=== PATIENT | female | born 1985 | race Caucasian/White ===

== ENCOUNTER 2019-09-08 13:57 | Outpatient (CLI) | payer OTHER ==
--- NOTE | 2019-09-09 02:41 | Ultrasound Report ---
Reason: POSITIVE TEST Procedure Date: 09/08/2019 Accession Number: [id number] / [id number] Procedure: US - OB First Trimester CPT Code: Final Report FULL RESULT: EXAM: FIRST TRIMESTER OBSTETRIC ULTRASOUND (Less than 11 weeks) EXAM DATE: 09/08/2019 02:50 PM. CLINICAL HISTORY: POSITIVE TEST. LMP: Unknown. COMPARISONS: None. TECHNIQUE: Transabdominal and transvaginal ultrasound examination with static image documentation. CLINICAL DATES: EGA 7 weeks 3 days with MANINDER 05/03/2020 based on LMP 07/18/2019. ASSESSMENT: Gestational Sac: Single intrauterine. Normal shape. Mean gestational sac diameter: 24 mm = 7 weeks 3 days. Embryo: CRL (crown-rump length) 9 mm = 7 weeks 0 days. Cardiac activity: 138 beats per minute. Yolk sac: 5 mm. Amniotic fluid: Not accurately assessed at this gestational age. Early placenta: Not visible at this gestational age. Other: No perigestational fluid collection demonstrated. MATERNAL STRUCTURES: Uterus: Retroflexed. Unremarkable. Cervix: Closed. Right Ovary/Adnexa: The ovary measures 2.5 x 1.3 x 3.8 cm, volume 6.2 cc. Unremarkable. Left Ovary/Adnexa: The ovary measures 2.8 x 2.6 x 2.9 cm, volume 10.9 cc. Corpus luteum cyst measuring 2.2 x 2.3 x 2.0 cm.. Free Fluid: None. Other: None. IMPRESSION: 1. Single viable intrauterine at EGA 7 weeks 0 days with MANINDER 04/26/2020 based on [place]-Rump Length, which is concordant with clinical dates. 2. Assigned dating is MANINDER 04/26/2020 based on current ultrasound study.. RADIA
== END 2019-09-08 13:58 | disposition home or self-care (01) ==
LOC: DI 13:57
PROVIDERS: ATTEND Advanced Practice Midwife
DX: Z32.01 Encounter for pregnancy test, result positive (principal)
CPT/HCPCS: 76801; 76817

== ENCOUNTER 2019-09-26 07:00 | Outpatient (CLI) | payer OTHER ==
[2019-09-26 16:09] LABS: MUDS CUTOFF CONCENTRATIONS CUTOFF CONC BELOW:
[2019-09-26 16:53] LABS: BILIRUBIN,URINE NEGATIVE (NEGATIVE); GLUCOSE, URINE (UA) NEGATIVE (NEGATIVE); KETONES,URINE (UA) TRACE mg/dL (NEGATIVE); LEUKOCYTE ESTERASE, URINE NEGATIVE (NEGATIVE); NITRITE,URINE NEGATIVE (NEGATIVE); OCCULT BLOOD,URINE NEGATIVE (NEGATIVE); PH,URINE 6.5 PH (5.0-7.5); PROTEIN,URINE NEGATIVE (NEGATIVE); UROBILINOGEN,URINE 0.2 (NORMAL) E.U./dL (NORMAL)
[2019-09-26 17:05] LABS: BACTERIA,URINE None Seen /HPF (None Seen); CLARITY,URINE V (CLEAR); CRYSTALS,URINE 0-2 Calcium Oxalate /LPF; RBC,URINE None Seen /HPF (0-5); SQUAMOUS EPITHELIAL CELL,UR RARE Squamous (<= Few)
[2019-09-26 17:06] LABS: AMPHETAMINE SCREEN,URINE NEGATIVE (NEGATIVE); BENZODIAZEPINES SCREEN, URINE NEGATIVE (NEGATIVE); COCAINE SCREEN URINE NEGATIVE (NEGATIVE); METHADONE SCREEN, URINE NEGATIVE (NEGATIVE); METHAMPHETAMINES SCREEN, URINE NEGATIVE (NEGATIVE); OPIATE SCREEN, URINE NEGATIVE (NEGATIVE); OXYCODONE SCREEN, URINE NEGATIVE (NEGATIVE); PROPOXYPHENE SCREEN, URINE NEGATIVE (NEGATIVE); TRICYCLIC ANTIDEPRESSANT,URINE NEGATIVE (NEGATIVE)
[2019-09-26 21:18] LABS: TRICHOMONAS VAGINALIS DNA NEGATIVE (NEGATIVE)
== END 2019-09-26 23:59 | disposition home or self-care (01) ==
LOC: LAB.R 07:00
PROVIDERS: ATTEND Advanced Practice Midwife
DX: Z34.90 Encounter for supervision of normal pregnancy, unspecified, unspecified trimester (principal); Z36.89 Encounter for other specified antenatal screening
CPT/HCPCS: 80306; 81001; 87086; 87491; 87591; 87661

== ENCOUNTER 2019-09-30 16:44 | Outpatient (CLI) | payer OTHER ==
[2019-09-30 17:14] LABS: BASOPHILS # (AUTO) 0.1 10^3/uL (0.0-0.1); BASOPHILS % (AUTO) 0.9 %; EOSINOPHILS # (AUTO) 0.1 10^3/uL (0.0-0.7); EOSINOPHILS % (AUTO) 0.4 %; LYMPHOCYTES # (AUTO) 2.4 10^3/uL (1.5-3.5); LYMPHOCYTES % (AUTO) 18.9 %; MEAN CORPUSCULAR HEMOGLOBIN 31.3 pg (27.0-31.0); MEAN CORPUSCULAR HGB CONC 34.9 g/dL (32.0-36.0); MEAN CORPUSCULAR VOLUME 89.9 fL (81.0-99.0); MEAN PLATELET VOLUME 9.3 fL (7.9-10.8); MONOCYTES # (AUTO) 0.6 10^3/uL (0.0-1.0); MONOCYTES % (AUTO) 4.4 %; NEUTROPHILS # (AUTO) 9.4 10^3/uL (1.5-6.6); NEUTROPHILS % (AUTO) 74.8 %; PLT - PLATELET COUNT 365 10^3/uL (130-450); RED BLOOD COUNT 4.15 10^6/uL (4.20-5.40); RED CELL DISTRIBUTION WIDTH 12.7 % (12.0-15.0); WHITE BLOOD COUNT 12.6 x10^3/uL (4.8-10.8)
[2019-10-01 11:19] LABS: HIV AG/AB 4TH GEN NON-REACTIVE (NON-REACTIVE)
[2019-10-01 12:50] LABS: HEPATITIS B SURFACE ANTIGEN NON-REACTIVE (NON-REACTIVE); HEPATITIS C ANTIBODY NON-REACTIVE (NON-REACTIVE)
== END 2019-09-30 16:45 | disposition home or self-care (01) ==
LOC: LAB 16:44
PROVIDERS: ATTEND Advanced Practice Midwife
DX: Z34.90 Encounter for supervision of normal pregnancy, unspecified, unspecified trimester (principal); Z36.89 Encounter for other specified antenatal screening
CPT/HCPCS: 36415; 81599; 85025; 86592; 86762; 86803; 86850; 86900; 86901; 87340; 87389

== ENCOUNTER 2019-10-14 15:44 | Outpatient (CLI) | payer OTHER | END 2019-10-14 15:45 | disposition home or self-care (01) | LOC: LAB 15:44 | PROVIDERS: ATTEND Advanced Practice Midwife | DX: Z01.89 Encounter for other specified special examinations (principal) | CPT/HCPCS: 36415 ==

== ENCOUNTER 2019-12-03 08:40 | Outpatient (CLI) | payer OTHER ==
--- NOTE | 2019-12-03 15:00 | Ultrasound Report ---
PROCEDURE: OB Detailed Eval INDICATIONS: SUPERVISION OF OUTSIDE/PRIOR DATING DATA: Last menstrual period (LMP): 07/18/2019. LMP-based estimated date of delivery (MANINDER): 04/23/2020. First dating scan (date and location): 09/08/2019. Estimated date of delivery (MANINDER) from first dating scan: 04/26/2020. TECHNIQUE: Real-time scanning was performed of the fetus, with image documentation and biometric measurements. COMPARISON: 09/08/2019 FINDINGS: General: A single live intrauterine gestation is present. Presentation: Variable Placenta: Placental position is anterior/low lying, seen 5 mm from the internal cervical os. Amniotic fluid index: 17.6 cm, 81st percentile for gestational age. heart rate: 147 beats per minute. Maternal cervical canal: 4.4 cm long; normal length is 2.5 cm or more. biometrics: Biparietal diameter: 4.9 cm equals 20 weeks 6 days Head circumference: 17.4 cm equals 20 weeks 0 days Abdominal circumference: 14.5 cm equals 19 weeks 6 days Femur length: 2.9 cm equals 19 weeks 0 days Estimated gestational age from initial scan: 19 weeks 2 days Composite gestational age from present scan: 19 weeks 6 days Estimated weight and percentile: 297 g, 59th percentile Measurement variability in biometric dating: +/- 10 days from 12-20 weeks gestation, +/- 2 weeks from 20-30 weeks gestation, +/- 3 weeks at 30 weeks gestation or later. Anatomic survey: Neuro: Ventricles are normal at less than 10 mm. Cisterna magna is normal at 3-11 mm. Cerebellum i s normal in size and morphology. Nuchal skin fold: Normal at less than 6 mm between 14 and 20 weeks gestational age. Face: Nose and lips, facial profile are normal. Spine: No evidence for spina bifida. Heart: 4-chambered heart is present, with normal ventricular outflow tracts. Diaphragm: Diaphragm is intact. Stomach: Left-sided stomach is present. Kidneys: No hydronephrosis. Normal is less than 5 mm in 2nd trimester, less than 7 mm in 3rd trimester. Cord: 3 vessel cord has orthotopic insertion. Bladder: Normal in size. Extremities: All 4 extremities are visualized. IMPRESSION: Low-lying anteriorly located placenta, which is seen 5 mm from the internal cervical os. Single live intrauterine , without an anatomic abnormality identified. Normal interval growth compared to the prior ultrasound examination. No anatomic abnormalities are identified. Reviewed by: Jaret Valdovinos MD on 12/03/2019 1:58 PM GEOVANNA Approved by: Jaret Valdovinos MD on 12/03/2019 1:58 PM GEOVANNA Station ID: [id number]
== END 2019-12-03 08:41 | disposition home or self-care (01) ==
LOC: DI 08:40
PROVIDERS: ATTEND Advanced Practice Midwife
DX: O44.42 Low lying placenta NOS or without hemorrhage, second trimester (principal); Z3A.19 19 weeks gestation of pregnancy
CPT/HCPCS: 76811

== ENCOUNTER 2020-01-27 11:05 | Outpatient (CLI) | payer OTHER ==
[2020-01-27 12:34] LABS: HGB - HEMOGLOBIN 11.8 g/dL (12.0-16.0); MEAN CORPUSCULAR HEMOGLOBIN 32.4 pg (27.0-31.0); MEAN CORPUSCULAR HGB CONC 34.6 g/dL (32.0-36.0); MEAN CORPUSCULAR VOLUME 93.7 fL (81.0-99.0); MEAN PLATELET VOLUME 9.4 fL (7.9-10.8); RED BLOOD COUNT 3.64 10^6/uL (4.20-5.40); RED CELL DISTRIBUTION WIDTH 13.3 % (12.0-15.0); WHITE BLOOD COUNT 13.7 x10^3/uL (4.8-10.8)
== END 2020-01-27 11:06 | disposition home or self-care (01) ==
LOC: LAB 11:05
PROVIDERS: ATTEND Advanced Practice Midwife
DX: Z36.89 Encounter for other specified antenatal screening (principal)
CPT/HCPCS: 36415; 82950; 85027

== ENCOUNTER 2020-01-30 17:07 | Outpatient (CLI) | payer OTHER ==
--- NOTE | 2020-01-31 16:43 | Ultrasound Report ---
PROCEDURE: OB F/U or Repeat INDICATIONS: LOW LYING PLACENTA OUTSIDE/PRIOR DATING DATA: Last menstrual period (LMP): 07/18/2019. LMP-based estimated date of delivery (MANINDER): 04/23/2020. First dating scan (date and location): 09/08/2019. Estimated date of delivery (MANINDER) from first dating scan: 04/26/2020. TECHNIQUE: Real-time scanning was performed of the fetus, with image documentation and biometric measurements. COMPARISON: OB ultrasound 12/03/2019, 09/08/2019 FINDINGS: General: A single living intrauterine gestation is present. Presentation: Vertex Placenta: Placental position is anterior, without previa. Previous appearance of low-lying placenta is not visualized on current exam. Placenta is approximately 5.5 cm from the internal os. Amniotic fluid index: 17.8 cm, 74th percentile for gestational age. Largest pocket 4.9 cm. heart rate: 144 beats per minute. Maternal cervical canal: 3.3 cm long; normal length is 2.5 cm or more. biometrics: Estimated gestational age from initial scan: 27 weeks 4 days Other: Not applicable. IMPRESSION: 1. Previously noted low-lying placenta is no longer visualized. Reviewed by: Raven Obando MD on 01/31/2020 4:42 PM PDT Approved by: Raven Obando MD on 01/31/2020 4:42 PM PDT Station ID: [id number]
== END 2020-01-30 17:08 | disposition home or self-care (01) ==
LOC: DI 17:07
PROVIDERS: ATTEND Advanced Practice Midwife
DX: O44.00 Complete placenta previa NOS or without hemorrhage, unspecified trimester (principal); Z3A.27 27 weeks gestation of pregnancy
CPT/HCPCS: 76816

== ENCOUNTER → 2020-03-12 | Outpatient (CLI) | payer OTHER | LOC: LAB.R 08:00 | PROVIDERS: ATTEND Advanced Practice Midwife | DX: Z36.85 Encounter for antenatal screening for Streptococcus B (principal) | CPT/HCPCS: 87797 ==

== ENCOUNTER 2020-04-24 21:25 | Inpatient (IN) | payer OTHER ==
[2020-04-24] MEDS ORDERED: ONDANSETRON 4 MG/2 ML VIAL IVP PRN (21:53)
[2020-04-24] MEDS ORDERED: TRANEXAMIC ACID 1,000 MG in SODIUM CHLORIDE 0.9% 100ML 100 ML IV PRN (21:53)
[2020-04-24] MEDS ORDERED: OXYTOCIN/SODIUM CHLORIDE 500 ML IV PRN (21:53)
[2020-04-24] MEDS ORDERED: fentaNYL 100 MCG/2 ML VIAL IVP PRN (21:53)
[2020-04-24] MEDS ORDERED: METHYLERGONOVINE 0.2 MG/ML VIAL IM PRN (21:53)
[2020-04-24] MEDS ORDERED: LIDOCAINE-MPF 1% 30 ML VIAL ID PRN (21:53)
[2020-04-24] MEDS ORDERED: OXYTOCIN 10 UNIT/ML VIAL IM PRN (21:53)
[2020-04-24] MEDS ORDERED: miSOPROStoL 200 MCG TABLET BC PRN (21:53)
[2020-04-24] MEDS ORDERED: CARBOPROST TROMETHAMINE 250 MCG/ML AMP IM PRN (21:53)
[2020-04-24] MEDS ORDERED: SODIUM CHLORIDE FLUSH 0.9% 10 ML SYRINGE IVP PRN (21:53)
[2020-04-24] MEDS ORDERED: LACTATED RINGERS 1,000 ML IV SCH (22:00)
[2020-04-24 22:31] LABS: BASOPHILS # (AUTO) 0.1 10^3/uL (0.0-0.1); BASOPHILS % (AUTO) 0.4 %; EOSINOPHILS % (AUTO) 0.1 %; HGB - HEMOGLOBIN 13.2 g/dL (12.0-16.0); LYMPHOCYTES # (AUTO) 2.3 10^3/uL (1.5-3.5); LYMPHOCYTES % (AUTO) 12.9 %; MEAN CORPUSCULAR HEMOGLOBIN 31.1 pg (27.0-31.0); MEAN CORPUSCULAR HGB CONC 34.5 g/dL (32.0-36.0); MEAN CORPUSCULAR VOLUME 90.1 fL (81.0-99.0); MEAN PLATELET VOLUME 9.8 fL (7.9-10.8); MONOCYTES # (AUTO) 0.8 10^3/uL (0.0-1.0); MONOCYTES % (AUTO) 4.5 %; NEUTROPHILS # (AUTO) 14.8 10^3/uL (1.5-6.6); NEUTROPHILS % (AUTO) 81.1 %; PLT - PLATELET COUNT 337 10^3/uL (130-450); RED BLOOD COUNT 4.25 10^6/uL (4.20-5.40); RED CELL DISTRIBUTION WIDTH 13.2 % (12.0-15.0); WHITE BLOOD COUNT 18.2 x10^3/uL (4.8-10.8)
--- NOTE | 2020-04-24 23:23 | ANESTHESIA ---
Pre-Anesthesia VS, & Labs - Diagnosis Active labor - Procedure vaginal delivery Vital Signs: Temp Pulse Resp BP Pulse Ox 37.3 C 79 18 137/85 H 100 04/24/20 22:28 04/24/20 21:36 04/24/20 21:36 04/24/20 21:36 04/24/20 21:36 Height: 5 ft 8 in Weight (kg): 72.575 kg Body Mass Index: 24.3 BMI Classification: Healthy weight - NPO Other - Is Patient ?: Yes - Lab Results Current Lab Results: Laboratory Tests 04/24/20 22:16: Blood Type O POSITIVE, Antibody Screen NEGATIVE 04/24/20 22:16: WBC 18.2 H, RBC 4.25, Hgb 13.2, Hct 38.3, MCV 90.1, MCH 31.1 H, MCHC 34.5, RDW 13.2, Plt Count 337, MPV 9.8, Neut # (Auto) 14.8 H, Lymph # (Auto) 2.3, [place] # (Auto) 0.8, Eos # (Auto) 0.0, Baso # (Auto) 0.1, Absolute Nu cleated RBC 0.00, Nucleated RBC % 0.0 Fish Bones: 04/24/20 22:16 Home Medications and Allergies Active Medications Carboprost Tromethamine (Carboprost Tromethamine 250 Mcg/Ml Amp) 250 mcg IM Q15M PRN PRN Reason: Step 4: Hemorrhage protocol Stop: 04/29/20 21:53 Fentanyl (Fentanyl 100 Mcg/2 Ml Vial) 50 mcg IVP Q1H PRN PRN Reason: PAIN Oxytocin/Sodium Chloride (Pitocin/Sodium Chloride) 500 mls @ 999 mls/hr IV PRN PRN; Protocol PRN Reason: POST- HEMORR PREVENTION Stop: 04/29/20 21:53 Tranexamic Acid 1,000 mg/ (Sodium Chloride) 110 mls @ 660 mls/hr IV .ONCE PRN PRN Reason: EBL >1200mL and within 3hr Stop: 04/29/20 21:53 Lactated Ringer's (Lr) 1,000 mls @ 150 mls/hr IV .Q6H40M REED Last Admin: 04/24/20 23:17 Dose: 150 mls/hr Documented by: Lidocaine HCl (Lidocaine-Mpf 1% 30 Ml Vial) 30 ml ID .ONCE PRN PRN Reason: PERINEAL REPAIR Stop: 04/29/20 21:53 Methylergonovine Maleate (Methylergonovine 0.2 Mg/Ml Vial) 0.2 mg IM .ONCE PRN PRN Reason: Step 2: Hemorrhage protocol Stop: 04/29/20 21:53 Misoprostol (Misoprostol 200 Mcg Tablet) 800 mcg BC .ONCE PRN PRN Reason: Step 3: Hemorrhage protocol Stop: 04/29/20 21:53 Ondansetron HCl (Ondansetron 4 Mg/2 Ml Vial) 4 mg IVP Q4H PRN PRN Reason: Nausea / Vomiting Oxytocin (Oxytocin 10 Unit/Ml Vial) 10 unit IM .ONCE PRN PRN Reason: Step one: If no IV access Stop: 04/29/20 21:53 Sodium Chloride (Sodium Chloride Flush 0.9% 10 Ml Syringe) 10 ml IVP PRN PRN PRN Reason: NEEDED PER PROVIDER ORDERS acyclovir, pnv Allergies/Adverse Reactions: Allergies Allergy/AdvReac Type Severity Reaction Status Date / Time Penicillins Allergy Unknown Verified 04/24/20 22:36 Anes History & Medical History - Anesthetic History Family history of Anesthesia Complications: Denies Family history of Malignant Hyperthermia: Denies - Medical History Cardiovascular: reports: None Pulmonary: reports: None Gastrointestinal: reports: None Urinary: reports: None Neuro: reports: Other (herniated lumbar disc) Musculoskeletal: reports: None Endocrine/Autoimmune: reports: None Blood Disorders: reports: None Skin: reports: None Smoking Status: Former smoker Psychosocial: reports: No issues indicated History of Cancer?: No Exam General: Alert, Oriented x3, Cooperative, Moderate distress Mouth Openin Fingerbreadth Neck Mobility: Normal Mallampati classification: II Thyromental Distance: 4-6 cm Mental/Cognitive Status: Alert/Oriented X3, Normal for patient Plan Anesthesia Type: Epidural Consent for Procedure(s) Verified and Reviewed: Yes Code Status: Attempt Resuscitation ASA classification: 2-Mild systemic disease Is this case an emergency?: No
[2020-04-24] MEDS ORDERED: ROPIVACAINE 0.2% 200 MG/100 ML BAG EP ONE (23:29)
[2020-04-24] MEDS ORDERED: ePHEDrine 50 MG/ML AMP IVP PRN (23:50)
[2020-04-24] MEDS ORDERED: ROPIVACAINE 0.2% 200 MG/100 ML BAG EP PRN (23:50)
--- NOTE | 2020-04-25 01:20 | HISTORY & PHYSICAL EXAMINATION ---
HPI - History of Present Illness HPI Comment/Other: CC: labor HPI: contractions started at 16:30, got more intense with time, stayed at home until q2-3min. No VB, no LOF. Good FM. ROS: no fevers or cough PMH: possible HSV PSH: neg Allergies: PCN childhood reaction FH: no congenital abnormalities SH: no current t/e/d OB: G1 is current. S/p tdap and flu vax Rh+, RI, Normal genetic testing and US GBS + MANINDER by LMP c/w 7w US PMH/PSH - Past Medical History Cardiovascular: positive: None Respiratory: positive: None Neuro: positive: Other (herniated lumbar disc) Endocrine/Autoimmune: positive: None GI: positive: None : positive: None Musculoskeletal: positive: None Derm: positive: None Social & Family Hx - Social History Smoking Status: Former smoker Meds/Allgy - Allergies Allergies/Adverse Reactions: Allergies Allergy/AdvReac Type Severity Reaction Status Date / Time Penicillins Allergy Unknown Verified 04/24/20 22:36 Exam - Vital Signs Vital Signs: Vital Signs x48h Temp Pulse Resp BP Pulse Ox 04/24/20 22:28 99.1 F 04/24/20 21:36 99.1 F 79 18 137/85 H 100 - Physical Exam Comments/Other: O: AVSS Alert, smiling with epidural, NAD Abd soft, nt/nd EFW 6.75# Vertex by exam Currently complete, SROM for thick mec NST currently category 1. [place] 4 contractions in 10min Results - Lab Results Fish Bones: 04/24/20 22:16 Other Lab Results: Lab Results x24hrs 04/24/20 04/24/20 Range/Units 22:16 22:16 WBC 18.2 H (4.8-10.8) x10^3/uL RBC 4.25 (4.20-5.40) 10^6/uL Hgb 13.2 (12.0-16.0) g/dL Hct 38.3 (37.0-47.0) % MCV 90.1 (81.0-99.0) fL MCH 31.1 H (27.0-31.0) pg MCHC 34.5 (32.0-36.0) g/dL RDW 13.2 (12.0-15.0) % Plt Count 337 (130-450) 10^3/uL MPV 9.8 (7.9-10.8) fL Neut # (Auto) 14.8 H (1.5-6.6) 10^3/uL Lymph # (Auto) 2.3 (1.5-3.5) 10^3/uL Delta # (Auto) 0.8 (0.0-1.0) 10^3/uL Eos # (Auto) 0.0 (0.0-0.7) 10^3/uL Baso # (Auto) 0.1 (0.0-0.1) 10^3/uL Absolute Nucleated RBC 0.00 x10^3/uL Nucleated RBC % 0.0 /100WBC Blood Type O POSITIVE Antibody Screen NEGATIVE Impression/Plan - Problem List Problem List: 34yo G1 at 40w2d by LMP c/w 7w US with spontaneous labor at term ; SROM for thick meconium. --Good labor progress, continue without intervention --Good pain control with epidural --Just became complete, will start pushing -- wellbeing reassuring. Normal genetic screen and anatomy US. 6.75# EFW. Reassuring NST. --Thick mec with post-dates fetus and without distress on monitoring. Peds and RT at delivery. --GBS neg --No issues identified.
[2020-04-25] MEDS ORDERED: HYDROCORTISONE 1% CREAM 28 GM TUBE PR PRN (03:01)
[2020-04-25] MEDS ORDERED: ONDANSETRON ODT 4 MG TABLET TL PRN (03:01)
[2020-04-25] MEDS ORDERED: WITCH HAZEL/GLYCERIN 1 PAD TOP PRN (03:01)
--- NOTE | 2020-04-25 03:05 | DELIVERY NOTE ---
Delivery Note - Labor Labor: positive: Spontaneous - Delivery Method Delivery Method: positive: Spontaneous vaginal delivery - Presentation Presentation: positive: Vertex - Nuchal Cord Nuchal Cord: positive: None - Amniotic Fluid Description Amniotic Fluid Description: positive: Thick meconium - Episiotomy Type Episiotomy Type: positive: None - Laceration Laceration: positive: 2nd degree - Suture Suture Type: positive: Vicryl - [place] : positive: Placed in direct skin contact with mother, Bulb syringe, Stimulated, Warmed, [place] used sex: positive: Male : Apgars 9/9 - Cord Cord: positive: 3 vessels - Placenta Placenta: positive: Intact, Spontaneous - Estimated Blood Loss Estimated Blood Loss (in cc): 60 - Post Delivery Events Post Delivery Events: positive: No post delivery events - Delivery Comments (Free Text/Narrative) Delivery Comments (Free Text/Narrative): 34yo G1 at 40w now 3d presented in spontaneous labor. Good labor progression here, got an epidural, SROM for thick mec when she became complete. Pushed for about 1h to deliver. Uncomplicated delivery. 2nd degree lac repaired with 2-0 and 3-0 vicryl to restore normal anatomy. EBL 60cc and starting Hct was 38 and so no CBC ordered for recheck. No specific concerns anticipated. Plan for routine care.
[2020-04-25] MEDS: ACETAMINOPHEN 500 MG TABLET PO PRN ×3 (04:03→20:20)
[2020-04-25] MEDS: IBUPROFEN 600 MG TABLET PO SCH ×4 (04:04→23:07)
[2020-04-25] MEDS: SIMETHICONE CHEW 80 MG TABLET PO SCH ×2 (07:33→11:53)
[2020-04-25] MEDS: DOCUSATE SODIUM 100 MG CAPSULE PO SCH ×2 (10:19→20:20)
--- NOTE | 2020-04-25 13:03 | PROVIDER PROGRESS NOTE ---
Subjective - Subjective Subjective: S: feeling OK, sore in vulva, ice helps. Eat, ambulate, urinate, breastfeed without problems. Mood good. Bleeding like menses. O: AVSS Alert, smiling, NAD Abd soft, nt/nd Fundus firm, NT, 1cm below U LE without edema A/P: 34yo P1 s/p at 40w, uncomplicated, continue routine care. Objective - Vital Signs/Intake & Output Vital Signs: Vital Signs x48h Temp Pulse Resp BP BP Pulse Ox 04/25/20 12:34 98.3 F 66 17 108/58 L 98 04/25/20 08:30 98.2 F 71 16 112/62 98 04/25/20 06:33 97.9 F 77 16 129/75 98 04/25/20 05:25 98.2 F 86 18 128/72 100 Intake & Output: Intake & Output 04/22/20 04/23/20 04/24/20 04/25/20 23:59 23:59 23:59 23:59 Output Total 65 Balance -65 - Lab Results Fish Bones: 04/24/20 22:16 Other Labs: Lab Results x24hrs 04/24/20 04/24/20 Range/Units 22:16 22:16 WBC 18.2 H (4.8-10.8) x10^3/uL RBC 4.25 (4.20-5.40) 10^6/uL Hgb 13.2 (12.0-16.0) g/dL Hct 38.3 (37.0-47.0) % MCV 90.1 (81.0-99.0) fL MCH 31.1 H (27.0-31.0) pg MCHC 34.5 (32.0-36.0) g/dL RDW 13.2 (12.0-15.0) % Plt Count 337 (130-450) 10^3/uL MPV 9.8 (7.9-10.8) fL Neut # (Auto) 14.8 H (1.5-6.6) 10^3/uL Lymph # (Auto) 2.3 (1.5-3.5) 10^3/uL [place] # (Auto) 0.8 (0.0-1.0) 10^3/uL Eos # (Auto) 0.0 (0.0-0.7) 10^3/uL Baso # (Auto) 0.1 (0.0-0.1) 10^3/uL Absolute Nucleated RBC 0.00 x10^3/uL Nucleated RBC % 0.0 /100WBC Blood Type O POSITIVE Antibody Screen NEGATIVE
[2020-04-26] MEDS: SIMETHICONE CHEW 80 MG TABLET PO SCH ×3 (07:26→14:07)
[2020-04-26] MEDS: IBUPROFEN 600 MG TABLET PO SCH ×4 (07:52→20:22)
[2020-04-26] MEDS: ACETAMINOPHEN 500 MG TABLET PO PRN ×2 (08:50→20:22)
[2020-04-26] MEDS: DOCUSATE SODIUM 100 MG CAPSULE PO SCH (08:51)
--- NOTE | 2020-04-26 17:44 | PROVIDER PROGRESS NOTE ---
Subjective - Subjective Subjective: Feeling OK, no problems. is going better. Objective - Vital Signs/Intake & Output Reviewed Vital Signs: Yes Vital Signs: Vital Signs x48h Temp Pulse Resp BP Pulse Ox 04/26/20 16:14 98.1 F 77 16 122/68 99 Intake & Output: Intake & Output 04/23/20 04/24/20 04/25/20 04/26/20 23:59 23:59 23:59 23:59 Output Total 65 Balance -65 - Lab Results Fish Bones: 04/24/20 22:16 - Other Results/Comments Other Results/Comments: Alert, with a great latch, NAD A/P: 34yo P1 PPD#1 s/p at term, doing well, d/c tomorrow.
[2020-04-27] MEDS: IBUPROFEN 600 MG TABLET PO SCH ×4 (02:51→15:50)
[2020-04-27] MEDS: ACETAMINOPHEN 500 MG TABLET PO PRN ×2 (05:51→15:50)
[2020-04-27] MEDS: DOCUSATE SODIUM 100 MG CAPSULE PO SCH (09:28)
--- NOTE | 2020-04-27 12:02 | Discharge Plan ---
Discharge Plan Problem Reviewed?: Yes Disposition: Home, Self Care Condition: Good Prescriptions: Acetaminophen [Acetaminophen Extra Strength] 1,000 mg PO Q6H PRN #60 tablet PRN Reason: Pain Docusate Sodium 100Mg Capsule [Colace 100Mg Capsule] 100 mg PO BID PRN #60 c apsule PRN Reason: To soften stool Ibuprofen [Motrin] 600 mg PO Q6H PRN #30 tab PRN Reason: Pain Activity Restrictions: No Restrictions Shower Restrictions: No Driving Restrictions: No Additional Instructions or Follow Up instructions: Go to triage immediately if you have a severe headache, visual changes, upper abdominal pain, or a change in your swelling. No Smoking: If you smoke, Please STOP! Call for help. Follow-up with: Lucila Cueto ARNP [Provider Admit Priv/Credential] - (1w and 6w)
[2020-04-27 18:38] VITALS: BP 107/70
--- NOTE | 2020-04-27 18:47 | Labor Flowsheet ---
Labor Flowsheet Datetime Report Generated by CPN: 04/27/2020 18:46 Datetime: 04/25/2020 04:35 PAIN Pain Scale: 0 Datetime: 04/25/2020 04:31 VITAL SIGNS NBP Sys/Chloe/Mean (mmHg): 119 : 56 : 71 Pulse: 76 Datetime: 04/25/2020 04:14 PATIENT CARE IV/Blood Work: IV Saline Locked Datetime: 04/25/2020 04:05 Epidural Procedure Other: Cath Removed; Cath Intact Datetime: 04/25/2020 03:07 Membranes Ruptured Date/Time: 04/25/2020 01:00 Amniotic Fluid Odor: Normal Datetime: 04/25/2020 03:00 Stage of : Recovery Temperature (C): 36.7 Temperature Route: Oral Pain Presence: None/Denies Datetime: 04/25/2020 02:41 LaborFlag: Labor Datetime: 04/25/2020 02:36 Stage 2 Comments: placenta Datetime: 04/25/2020 02:35 MEDICATIONS Medication Comments: pitocin started Datetime: 04/25/2020 02:25 UTERINE ACTIVITY Monitor Mode: External Frequency (min): 3 ASSESSMENT A Monitor Mode: Telemetry FHR Baseline Rate : 145 Variability: Moderate 6-25 bpm Accelerations: 15X15 Decelerations: Variable Actions for Decelerations: with pushes Datetime: 04/25/2020 02:10 SpO2 (%): 98 Datetime: 04/25/2020 01:45 Monitor Interventions for UA: [place] Adjusted Quality: Strong Datetime: 04/25/2020 01:43 COMMUNICATION Communication: Provider at Bedside Datetime: 04/25/2020 01:34 Pattern: Normal: <= 5 Contractions in 10 Minutes Resting Tone (Palpate): Relaxed Category: Category II STAGE 2 Pushing Position: Pushing with Contractions; Pushing Lithotomy Pushing Progress: Descent with Pushing Datetime: 04/25/2020 01:31 I/O Interventions: [place] Discontinued Patient Care Comments: emptied of 65 ml john urine Datetime: 04/25/2020 01:04 Provider Notified (Name): Dr. Juan Communication Comments: ntified of SROM with lt meconium Datetime: 04/25/2020 01:01 VAGINAL EXAM Dilatation (cm): 10.0 Effacement (%): 100 Station: -2 Exam by: atv Membranes Rupture Method: Spontaneous Amniotic Fluid Color: Light Meconium Amniotic Fluid Amount: Moderate Vaginal Bleeding: Normal Show Cervix, Position: Anterior Membrane Comments: forebag remains Datetime: 04/25/2020 01:00 Duration (sec): 60 Datetime: 04/25/2020 00:44 Pain Assessment Comments: comfortable with epidural Patient Position/Activity: Left Tilt Datetime: 04/25/2020 00:30 Membrane Status: Intact Datetime: 04/25/2020 00:17 Provider Reviewed Strip: No Notification Reason: Status Update Datetime: 04/25/2020 00:13 Cervix, Consistency: Soft Datetime: 04/24/2020 23:58 Anesthesia Level Check: T10- Umbilicus Datetime: 04/24/2020 23:40 Epidural Procedure: Loading Dose Datetime: 04/24/2020 23:28 PROCEDURE TIME OUT Procedure Verify: Correct Patient Identity; Correct Side and Site are Marked; Accurate Procedure Co nsent Form; Agreement on Procedure to be Done; Correct Patient Position; Addressed Need to Administer Antibiotics or Fluids for Irrigation; Safety Precautions Based on Patient History or Medication Use Datetime: 04/24/2020 23:24 ANESTHESIA Anesthesia Plans: Epidural Anesthesia Comments: consented for epidural Datetime: 04/24/2020 22:40 MATERNAL ASSESSMENT Level of Consciousness: Alert DTR's/Clonus: DTRs 2+ Headache: Denies Breath Sounds, Left: Clear and Equal Breath Sounds, Right: Clear and Equal Nausea/Vomiting: Denies RUQ Epigastric Pain: Denies
--- NOTE | 2020-04-29 08:51 | DISCHARGE SUMMARY ---
Physician: Tonie Martinez MD DATE OF ADMISSION: 04/25/2020 DATE OF DISCHARGE: 04/27/2020 ADMISSION DIAGNOSES 1. Intrauterine at 40 weeks. 2. Spontaneous labor. DISCHARGE DIAGNOSIS: Status post spontaneous vaginal delivery at term. PROCEDURE: 04/25/2020, spontaneous vaginal delivery, uncomplicated. HOSPITAL COURSE: Patient was admitted in active spontaneous labor. She received an epidural for janey n control. She did not require augmentation. Her heart tracing was reassuring throughout her . She received an epidural for pain control and delivered uncomplicated. Her course was remarkable for upper abdominal pain that was moderate on day 2. It felt cramping in nature. No headache, visual changes, or change in edema. No increased blood pr essures were present. DTRs were 2+. Patient was counseled that there can be a risk of p reeclampsia and that she would need to follow up p.r.n. severe upper abdominal pain, severe headache, visual changes, or significant change in edema. The pain had disappeared after taking a Tylenol and after using a warm pack on her upper abdomen. Otherwise she was eating, ambulating, urinating, and defecating without problems. Her was good. She did not have any heavy bleeding or moo d changes. DISCHARGE EXAMINATION VITAL SIGNS: Afebrile with normal vital signs. GENERAL: Alert and smiling, in no apparent distress. ABDOMEN: Soft, nontender, nondistended. Fundus firm, nontender, and at the umbilicus. EXTREMITIES: No lower extremity edema. NEUROLOGIC: Reflexes 2+. DISPOSITION: Home. CONDITION: Good. FOLLOWUP: In 1 week and 6 weeks with the midwives. PRECAUTIONS: Routine and preeclampsia precautions given. CARE: No issues identified. The patient is Rh negative, rubella immune, varicella immune, and she received both her whooping coug h and flu vaccinations. TD: 04/27/2020 08:48
== END 2020-04-27 17:20 | disposition home or self-care (01) | DRG 807 ==
LOC: WFO 21:25 → FBP 21:26 → WFO 21:52 → FBP 21:53
PROVIDERS: ADMIT Obstetrics & Gynecology; ATTEND Obstetrics & Gynecology
PROC: 10E0XZZ Delivery of Products of Conception, External Approach (ICD-10-PCS; principal; 2020-04-25)
PROC: 0KQM0ZZ Repair Perineum Muscle, Open Approach (ICD-10-PCS; 2020-04-25)
DX: O48.0 Post-term pregnancy (principal); Z37.0 Single live birth; O77.0 Labor and delivery complicated by meconium in amniotic fluid; O70.1 Second degree perineal laceration during delivery; O99.892 Other specified diseases and conditions complicating childbirth; M51.26 Other intervertebral disc displacement, lumbar region; O90.89 Other complications of the puerperium, not elsewhere classified; R10.10 Upper abdominal pain, unspecified; Z3A.40 40 weeks gestation of pregnancy; Z87.891 Personal history of nicotine dependence
CPT/HCPCS: 85025; 86850; 86900; 86901; 87635; 99211; A9270; J7120

== ENCOUNTER 2020-05-04 10:15 | Outpatient (CLI) | payer OTHER ==
--- NOTE | 2020-05-04 11:33 | Labor Flowsheet ---
Labor Flowsheet Datetime Report Generated by CPN: 05/04/2020 11:33 Datetime: 04/25/2020 04:35 PAIN Pain Scale: 0 Datetime: 04/25/2020 04:31 VITAL SIGNS NBP Sys/Chloe/Mean (mmHg): 119 : 56 : 71 Pulse: 76 Datetime: 04/25/2020 04:14 PATIENT CARE IV/Blood Work: IV Saline Locked Datetime: 04/25/2020 04:05 Epidural Procedure Other: Cath Removed; Cath Intact Datetime: 04/25/2020 03:07 Membranes Ruptured Date/Time: 04/25/2020 01:00 Amniotic Fluid Odor: Normal Datetime: 04/25/2020 03:00 Stage of : Recovery Temperature (C): 36.7 Temperature Route: Oral Pain Presence: None/Denies Datetime: 04/25/2020 02:41 LaborFlag: Labor Datetime: 04/25/2020 02:36 Stage 2 Comments: placenta Datetime: 04/25/2020 02:35 MEDICATIONS Medication Comments: pitocin started Datetime: 04/25/2020 02:25 UTERINE ACTIVITY Monitor Mode: External Frequency (min): 3 ASSESSMENT A Monitor Mode: Telemetry FHR Baseline Rate : 145 Variability: Moderate 6-25 bpm Accelerations: 15X15 Decelerations: Variable Actions for Decelerations: with pushes Datetime: 04/25/2020 02:10 SpO2 (%): 98 Datetime: 04/25/2020 01:45 Monitor Interventions for UA: [place] Adjusted Quality: Strong Datetime: 04/25/2020 01:43 COMMUNICATION Communication: Provider at Bedside Datetime: 04/25/2020 01:34 Pattern: Normal: <= 5 Contractions in 10 Minutes Resting Tone (Palpate): Relaxed Category: Category II STAGE 2 Pushing Position: Pushing with Contractions; Pushing Lithotomy Pushing Progress: Descent with Pushing Datetime: 04/25/2020 01:31 I/O Interventions: [place] Discontinued Patient Care Comments: emptied of 65 ml john urine Datetime: 04/25/2020 01:04 Provider Notified (Name): Dr. Juan Communication Comments: ntified of SROM with lt meconium Datetime: 04/25/2020 01:01 VAGINAL EXAM Dilatation (cm): 10.0 Effacement (%): 100 Station: -2 Exam by: atv Membranes Rupture Method: Spontaneous Amniotic Fluid Color: Light Meconium Amniotic Fluid Amount: Moderate Vaginal Bleeding: Normal Show Cervix, Position: Anterior Membrane Comments: forebag remains Datetime: 04/25/2020 01:00 Duration (sec): 60 Datetime: 04/25/2020 00:44 Pain Assessment Comments: comfortable with epidural Patient Position/Activity: Left Tilt Datetime: 04/25/2020 00:30 Membrane Status: Intact Datetime: 04/25/2020 00:17 Provider Reviewed Strip: No Notification Reason: Status Update Datetime: 04/25/2020 00:13 Cervix, Consistency: Soft Datetime: 04/24/2020 23:58 Anesthesia Level Check: T10- Umbilicus Datetime: 04/24/2020 23:40 Epidural Procedure: Loading Dose Datetime: 04/24/2020 23:28 PROCEDURE TIME OUT Procedure Verify: Correct Patient Identity; Correct Side and Site are Marked; Accurate Procedure Co nsent Form; Agreement on Procedure to be Done; Correct Patient Position; Addressed Need to Administer Antibiotics or Fluids for Irrigation; Safety Precautions Based on Patient History or Medication Use Datetime: 04/24/2020 23:24 ANESTHESIA Anesthesia Plans: Epidural Anesthesia Comments: consented for epidural Datetime: 04/24/2020 22:40 MATERNAL ASSESSMENT Level of Consciousness: Alert DTR's/Clonus: DTRs 2+ Headache: Denies Breath Sounds, Left: Clear and Equal Breath Sounds, Right: Clear and Equal Nausea/Vomiting: Denies RUQ Epigastric Pain: Denies
== END 2020-05-04 11:25 | disposition home or self-care (01) ==
LOC: WFO 10:15 → FBP 10:18 → WFO 11:25
PROVIDERS: ATTEND Obstetrics & Gynecology
DX: O92.79 Other disorders of lactation (principal)
CPT/HCPCS: 99404

== ENCOUNTER 2020-05-17 08:00 | Outpatient (CLI) | payer OTHER ==
[2020-05-18 21:42] LABS: CANDIDA GROUP DNA NEGATIVE (NEGATIVE); CANDIDA KRUSEI DNA NEGATIVE (NEGATIVE); TRICHOMONAS VAGINALIS DNA NEGATIVE (NEGATIVE)
== END 2020-05-17 23:59 ==
LOC: LAB.R 08:00
PROVIDERS: ATTEND Advanced Practice Midwife
DX: N76.0 Acute vaginitis (principal)
CPT/HCPCS: 87661; 87801

== ENCOUNTER 2021-04-23 08:00 | Outpatient (CLI) | payer OTHER | END 2021-04-23 23:59 | LOC: LAB.N 08:00 | PROVIDERS: ATTEND Family Medicine | DX: J06.9 Acute upper respiratory infection, unspecified (principal); Z20.822 Contact with and (suspected) exposure to COVID-19 ==

== ENCOUNTER 2022-04-22 18:07 | Emergency (ER) | payer OTHER ==
[2022-04-22 18:30] LABS: BILIRUBIN,URINE NEGATIVE (NEGATIVE); GLUCOSE, URINE (UA) NEGATIVE (NEGATIVE); KETONES,URINE (UA) NEGATIVE (NEGATIVE); LEUKOCYTE ESTERASE, URINE NEGATIVE (NEGATIVE); NITRITE,URINE NEGATIVE (NEGATIVE); OCCULT BLOOD,URINE NEGATIVE (NEGATIVE); PROTEIN,URINE NEGATIVE (NEGATIVE); UROBILINOGEN,URINE 0.2 (NORMAL) E.U./dL (NORMAL)
[2022-04-22 18:43] LABS: BASOPHILS # (AUTO) 0.1 10^3/uL (0.0-0.1); BASOPHILS % (AUTO) 1.1 %; EOSINOPHILS # (AUTO) 0.1 10^3/uL (0.0-0.7); EOSINOPHILS % (AUTO) 1.1 %; HCT - HEMATOCRIT 39.6 % (37.0-47.0); HGB - HEMOGLOBIN 13.1 g/dL (12.0-16.0); LYMPHOCYTES # (AUTO) 2.9 10^3/uL (1.5-3.5); MEAN CORPUSCULAR HEMOGLOBIN 29.6 pg (27.0-31.0); MEAN CORPUSCULAR HGB CONC 33.1 g/dL (32.0-36.0); MEAN CORPUSCULAR VOLUME 89.6 fL (81.0-99.0); MEAN PLATELET VOLUME 8.9 fL (7.9-10.8); MONOCYTES # (AUTO) 0.4 10^3/uL (0.0-1.0); MONOCYTES % (AUTO) 3.7 %; NEUTROPHILS # (AUTO) 7.4 10^3/uL (1.5-6.6); NEUTROPHILS % (AUTO) 67.6 %; PLT - PLATELET COUNT 386 10^3/uL (130-450); RED BLOOD COUNT 4.42 10^6/uL (4.20-5.40); RED CELL DISTRIBUTION WIDTH 12.5 % (12.0-15.0)
[2022-04-22 18:44] LABS: CLARITY,URINE CLEAR (CLEAR)
[2022-04-22 18:55] LABS: ALBUMIN 4.4 g/dL (3.2-5.5); ALBUMIN/GLOBULIN RATIO 1.5 (1.0-2.2); BILIRUBIN,TOTAL 0.8 mg/dL (0.2-1.0); CALCIUM 9.3 mg/dL (8.5-10.3); CREATININE 0.5 mg/dL (0.4-1.0); POTASSIUM 3.6 mmol/L (3.5-5.0); TOTAL PROTEIN 7.3 g/dL (6.7-8.2)
--- NOTE | 2022-04-22 19:23 | Ultrasound Report ---
PROCEDURE: OB First Trimester w/TV INDICATIONS: preg VB OUTSIDE/PRIOR DATING DATA: Last menstrual period (LMP): 02/24/2022. LMP-based estimated date of delivery (MANINDER): 12/01/2022. First dating scan (date and location): 04/22/2022. Estimated date of delivery (MANINDER) from first dating scan: Not applicable. TECHNIQUE: Real-time scanning was performed of the fetus and maternal pelvic organs, with image documentation. Endovaginal scanning was also performed to better visualize the fetus and maternal ovaries. COMPARISON: FINDINGS: Embryo: [ Intrauterine gestational sac is identified measuring 1.5 cm coarse 9-6 weeks 2 days. Ther e is no visualized crown-rump or yolk sac. ] There is a subchorionic hemorrhage measuring 17 x 5 x 15 mm. Heart rate: [ Absent ] Measurement variability in dating: +/- 4 weeks by LMP, +/- 7 days by mean sac diameter (use before 6 weeks gestation if crown-rump length not able to be measured), +/- 5 days by crown-rump length (6-12 weeks gestation). Maternal organs: Ovaries [ demonstrate a right corpus luteal cyst. ]. IMPRESSION: Intrauterine gestational sac without visualized pole or crown-rump length. No heart tones. Find ings are suspicious for nonviable . Recommend correlation to beta hCG levels and short inter ling imaging follow-up as indicated. Small subchorionic hemorrhage. Reviewed by: Raven Obando MD on 04/22/2022 7:21 PM PST Approved by: Raven Obando MD on 04/22/2022 7:21 PM PST Station ID: [id number]
--- NOTE | 2022-04-22 20:44 | ED Physician Documentation ---
History of Present Illness - Stated complaint Stated Complaint: ABD CRAMPING - Chief complaint Chief Complaint: Abd Pain - History obtained from History obtained from: Patient - History of Present Illness Timing: Today Pain level max: 3 Pain level now: 3 - Additonal information Additional information: 36-year-old female 2 para 1 believes she is about 8 weeks . She states that she has had mild pelvic cramping over the past 2 days, started having brownish colored bleeding today. Nothing seems to make it better or worse. No fevers. No chills. No vomiting. No trauma. Review of Systems Constitutional: denies: Fever, Chills Respiratory: denies: Cough GI: denies: Abdominal Pain, Nausea, Vomiting, Diarrhea : denies: Dysuria, Frequency, Hesitancy, Discharge Skin: denies: Rash Musculoskeletal: denies: Neck pain, Back pain Neurologic: denies: Headache PD PAST MEDICAL HISTORY - Past Medical History Cardiovascular: None Respiratory: None Neuro: Other (herniated lumbar disc) Endocrine/Autoimmune: None GI: None : None Musculoskeletal: None Derm: None - Present Medications Home Medications: Ambulatory Orders Medication Instructions Recorded Confirmed Acetaminophen [Acetaminophen Extra 1,000 mg PO Q6H PRN #60 tablet 04/27/20 Strength] Docusate Sodium 100Mg Capsule 100 mg PO BID PRN #60 capsule 04/27/20 [Colace 100Mg Capsule] Ibuprofen [Motrin] 600 mg PO Q6H PRN #30 tab 04/27/20 - Allergies Allergies/Adverse Reactions: Allergies Allergy/AdvReac Type Severity Reaction Status Date / Time Penicillins Allergy Unknown Verified 04/22/22 18:17 - Social History Smoking Status: Former smoker PD ED PE NORMAL - Vitals Vital signs reviewed: Yes - General General: Alert and oriented X 3, No acute distress - HEENT HEENT: PERRL, Moist mucous membranes - Neck Neck: Supple, no meningeal sign - Cardiac Cardiac: RRR, Strong equal pulses - Respiratory Respiratory: No respiratory distress, Clear bilaterally - Abdomen Abdomen: Soft, Non tender, Non distended - Derm Derm: Warm and dry, No rash - Extremities Extremities: No edema, No calf tenderness / cord - Neuro Neuro: Alert and oriented X 3 - Psych Psych: Normal mood, Normal affect Results - Vitals Vitals: Vital Signs - 24 hr 04/22/22 04/22/22 18:12 20:54 Temperature 36.6 C Heart Rate 64 64 Respiratory 16 17 Rate Blood Pressure 113/66 112/60 O2 Saturation 100 100 Oxygen O2 Source Room air - Labs Labs: Laboratory Tests 04/22/22 04/22/22 04/22/22 18:27 18:33 18:33 WBC 11.0 H RBC 4.42 Hgb 13.1 Hct 39.6 MCV 89.6 MCH 29.6 MCHC 33.1 RDW 12.5 Plt Count 386 MPV 8.9 Neut # (Auto) 7.4 H Lymph # (Auto) 2.9 [place] # (Auto) 0.4 Eos # (Auto) 0.1 Baso # (Auto) 0.1 Absolute Nucleated RBC 0.00 Nucleated RBC % 0.0 Sodium 136 Potassium 3.6 Chloride 102 Carbon Dioxide 26 Anion Gap 8.0 BUN 10 Creatinine 0.5 Estimated GFR (MDRD) 140 Glucose 103 H Calcium 9.3 Total Bilirubin 0.8 AST 13 ALT 14 Alkaline Phosphatase 56 Total Protein 7.3 Albumin 4.4 Globulin 2.9 Albumin/Globulin Ratio 1.5 Lipase 33 HCG, Quant Urine Color LIGHT YELLOW Urine Clarity CLEAR Urine pH 6.0 Ur Specific [place] <=1.005 Urine Protein NEGATIVE Urine Glucose (UA) NEGATIVE Urine Ketones NEGATIVE Urine Occult Blood NEGATIVE Urine Nitrite NEGATIVE Urine Bilirubin NEGATIVE Urine Urobilinogen 0.2 (NORMAL) Ur Leukocyte Esterase NEGATIVE Ur Microscopic Review NOT INDICATED Urine Culture Comments NOT INDICATED Blood Type 04/22/22 04/22/22 18:33 18:33 WBC RBC Hgb Hct MCV MCH MCHC RDW Plt Count MPV Neut # (Auto) Lymph # (Auto) [place] # (Auto) Eos # (Auto) Baso # (Auto) Absolute Nucleated RBC Nucleated RBC % Sodium Potassium Chloride Carbon Dioxide Anion Gap BUN Creatinine Estimated GFR (MDRD) Glucose Calcium Total Bilirubin AST ALT Alkaline Phosphatase Total Protein Albumin Globulin Albumin/Globulin Ratio Lipase HCG, Quant 75814.00 Urine Color Urine Clarity Urine pH Ur Specific [place] Urine Protein Urine Glucose (UA) Urine Ketones Urine Occult Blood Urine Nitrite Urine Bilirubin Urine Urobilinogen Ur Leukocyte Esterase Ur Microscopic Review Urine Culture Comments Blood Type O POSITIVE - Rads (name of study) Pelvic ultrasound Radiology: Final report received, See rad report PD Medical Decision Making - ED course Complexity details: reviewed results, re-evaluated patient, considered differential, d/w patient ED course: 36-year-old female with vaginal bleeding affecting early . Her ultrasound shows a gestational sac but no yolk sac or pole. Concern for blighted ovum/anembryonic . No evidence of ectopic . Discussed the results with the patient. Discussed need for close follow-up with her PCP for repeat hCG. Patient counseled regarding signs and symptoms for which I believe and urgent re-evaluation would be necessary. Patient with good understanding of and agreement to plan and is comfortable going home at this time This document was made in part using voice recognition software. While efforts are made to proofread this document, sound alike and grammatical errors may occur. Departure - Departure Disposition: 01 Home, Self Care Clinical Impression: Vaginal bleeding affecting early Condition: Good Instructions: ED Miscarriage Poss Follow-Up: David Rockwell [Physician No Access] - Within 3 Days Comments: Please follow-up with your doctor in 3 days to recheck your hCG level. Your hCG level today is 26,920. Your ultrasound shows a gestational sac but we do not see a pole or heart rate at this time. This could be an early or it could be what we call a blighted ovum/anembryonic . If this is the case that it is a blighted ovum, the will miscarry. There is no evidence of ectopic at this time. Please return if you worsen including worsening pain, bleeding or other new or worrisome symptoms. I would call your doctors office tomorrow to have the hCG drawn on afternoon so it is available for your appointment on Thursday. Ultrasound Results: FINDINGS: Embryo: [ Intrauterine gestational sac is identified measuring 1.5 cm coarse 9-6 weeks 2 days. There is no visualized crown-rump or yolk sac. ] There is a subchorionic hemorrhage measuring 17 x 5 x 15 mm. Heart rate: [ Absent ] Measurement variability in dating: +/- 4 weeks by LMP, +/- 7 days by mean sac diameter (use before 6 weeks gestation if crown-rump length not able to be measured), +/- 5 days by crown-rump length (6- 12 weeks gestation). Maternal organs: Ovaries [ demonstrate a right corpus luteal cyst. ]. IMPRESSION: Intrauterine gestational sac without visualized pole or crown-rump length. No heart tones. Findings are suspicious for nonviable . Recommend correlation to beta hCG levels and short interval imaging follow-up as indicated. Small subchorionic hemorrhage. Discharge Date/Time: 04/22/22 20:55
[2022-04-22 20:55] VITALS: BP 112/60
== END 2022-04-22 20:55 | disposition home or self-care (01) ==
LOC: ED 18:07
DX: O20.9 Hemorrhage in early pregnancy, unspecified (principal); Z87.891 Personal history of nicotine dependence; Z3A.00 Weeks of gestation of pregnancy not specified
CPT/HCPCS: 36415; 80053; 81001; 81003; 83690; 84702; 85025; 86900; 86901; 87086; 99283; 99284

== ENCOUNTER 2022-05-15 16:13 | Outpatient (CLI) | payer OTHER | END 2022-05-15 16:14 | disposition home or self-care (01) | LOC: LAB 16:13 | PROVIDERS: ATTEND Obstetrics & Gynecology | DX: O03.9 Complete or unspecified spontaneous abortion without complication (principal) | CPT/HCPCS: 36415; 84702 ==

== ENCOUNTER 2022-07-10 08:00 | Outpatient (CLI) | payer OTHER ==
[2022-07-11 08:46] LABS: BILIRUBIN,URINE NEGATIVE (NEGATIVE); GLUCOSE, URINE (UA) NEGATIVE (NEGATIVE); KETONES,URINE (UA) NEGATIVE (NEGATIVE); LEUKOCYTE ESTERASE, URINE NEGATIVE (NEGATIVE); NITRITE,URINE NEGATIVE (NEGATIVE); OCCULT BLOOD,URINE NEGATIVE (NEGATIVE); PROTEIN,URINE NEGATIVE (NEGATIVE); UROBILINOGEN,URINE 0.2 (NORMAL) E.U./dL (NORMAL)
[2022-07-11 08:56] LABS: BACTERIA,URINE None Seen /HPF (None Seen); CLARITY,URINE CLEAR (CLEAR); RBC,URINE None Seen /HPF (0-5); SQUAMOUS EPITHELIAL CELL,UR RARE Squamous (<= Few); WBC,URINE 0-3 /HPF (0-5)
== END 2022-07-10 23:59 | disposition home or self-care (01) ==
LOC: LAB.R 08:00
PROVIDERS: ATTEND Obstetrics & Gynecology
DX: Z34.90 Encounter for supervision of normal pregnancy, unspecified, unspecified trimester (principal)
CPT/HCPCS: 81001; 87086

== ENCOUNTER 2022-07-14 16:35 | Outpatient (CLI) | payer OTHER ==
[2022-07-14 21:21] LABS: BASOPHILS # (AUTO) 0.1 10^3/uL (0.0-0.1); BASOPHILS % (AUTO) 0.7 %; EOSINOPHILS # (AUTO) 0.1 10^3/uL (0.0-0.7); EOSINOPHILS % (AUTO) 0.6 %; HCT - HEMATOCRIT 35.4 % (37.0-47.0); HGB - HEMOGLOBIN 11.9 g/dL (12.0-16.0); LYMPHOCYTES # (AUTO) 2.7 10^3/uL (1.5-3.5); LYMPHOCYTES % (AUTO) 20.8 %; MEAN CORPUSCULAR HEMOGLOBIN 30.5 pg (27.0-31.0); MEAN CORPUSCULAR HGB CONC 33.6 g/dL (32.0-36.0); MEAN CORPUSCULAR VOLUME 90.8 fL (81.0-99.0); MEAN PLATELET VOLUME 9.2 fL (7.9-10.8); MONOCYTES # (AUTO) 0.6 10^3/uL (0.0-1.0); NEUTROPHILS # (AUTO) 9.2 10^3/uL (1.5-6.6); NEUTROPHILS % (AUTO) 72.2 %; PLT - PLATELET COUNT 398 10^3/uL (130-450); RED CELL DISTRIBUTION WIDTH 12.3 % (12.0-15.0); WHITE BLOOD COUNT 12.8 x10^3/uL (4.8-10.8)
[2022-07-14 21:54] LABS: BILIRUBIN,URINE NEGATIVE (NEGATIVE); GLUCOSE, URINE (UA) NEGATIVE (NEGATIVE); KETONES,URINE (UA) NEGATIVE (NEGATIVE); LEUKOCYTE ESTERASE, URINE NEGATIVE (NEGATIVE); NITRITE,URINE NEGATIVE (NEGATIVE); OCCULT BLOOD,URINE NEGATIVE (NEGATIVE); PH,URINE 5.5 PH (5.0-7.5); PROTEIN,URINE NEGATIVE (NEGATIVE); UROBILINOGEN,URINE 0.2 (NORMAL) E.U./dL (NORMAL)
[2022-07-14 22:14] LABS: BACTERIA,URINE None Seen /HPF (None Seen); CLARITY,URINE CLEAR (CLEAR); RBC,URINE None Seen /HPF (0-5); SQUAMOUS EPITHELIAL CELL,UR RARE Squamous (<= Few); WBC,URINE 0-3 /HPF (0-5)
[2022-07-14 22:15] LABS: CRYSTALS,URINE 6-10 Calcium Oxalate /LPF
[2022-07-16 05:10] LABS: HBsAG SCREEN Negative (Negative)
[2022-07-16 06:10] LABS: RPR Non Reactive (Non Reactive)
[2022-07-16 12:09] LABS: VARICELLA-ZOSTER AB IGG 2048 index (Immune >165)
[2022-07-17 01:08] LABS: HCV AB Non Reactive (Non Reactive); HIV SCREEN 4TH GENERATION Non Reactive (Non Reactive)
== END 2022-07-14 16:36 | disposition home or self-care (01) ==
LOC: LAB.N 16:35
PROVIDERS: ATTEND Obstetrics & Gynecology
DX: Z34.90 Encounter for supervision of normal pregnancy, unspecified, unspecified trimester (principal)
CPT/HCPCS: 36415; 81001; 85025; 86592; 86762; 86787; 86803; 86850; 86900; 86901; 87086; 87340; 87389

== ENCOUNTER 2022-07-16 09:45 | Outpatient (CLI) | payer OTHER ==
--- NOTE | 2022-07-16 17:00 | Ultrasound Report ---
PROCEDURE: OB First Trimester w/TV INDICATIONS: POSITIVE TEST OUTSIDE/PRIOR DATING DATA: Last menstrual period (LMP): 05/22/2022. LMP-based estimated date of delivery (MANINDER): 02/26/2023. First dating scan (date and location): 07/16/2022. Estimated date of delivery (MANINDER) from first dating scan: 02/26/2023. TECHNIQUE: Real-time scanning was performed of the fetus and maternal pelvic organs, with image documentation. Endovaginal scanning was also performed to better visualize the fetus and maternal ovaries. COMPARISON: None FINDINGS: Embryo: Single live intrauterine is identified with crown-rump length measuring 1.6 cm cor responding to 8 weeks 0 days. Heart rate: 1 73 bpm. Measurement variability in dating: +/- 4 weeks by LMP, +/- 7 days by mean sac diameter (use before 6 weeks gestation if crown-rump length not able to be measured), +/- 5 days by crown-rump length (6-12 weeks gestation). Maternal organs: Ovaries demonstrate a left corpus luteal cyst.. IMPRESSION: Single live intrauterine with ultrasound gestational age of 8 weeks 0 days. Recommend follow-up imaging at 20-22 weeks for dates and anatomy. Reviewed by: Raven Obando MD on 07/16/2022 4:59 PM PDT Approved by: Raven Obando MD on 07/16/2022 4:59 PM PDT Station ID: [id number]
== END 2022-07-16 09:46 | disposition home or self-care (01) ==
LOC: DI 09:45
PROVIDERS: ATTEND Obstetrics & Gynecology
DX: Z34.91 Encounter for supervision of normal pregnancy, unspecified, first trimester (principal)

== ENCOUNTER 2022-08-07 09:00 | Outpatient (CLI) | payer OTHER ==
[2022-08-08 00:31] LABS: CHLAMYDIA TRACHOMATIS DNA NEGATIVE (NEGATIVE); NEISSERIA GONORRHOEAE DNA NEGATIVE (NEGATIVE); TRICHOMONAS VAGINALIS DNA NEGATIVE (NEGATIVE)
== END 2022-08-07 23:59 | disposition home or self-care (01) ==
LOC: LAB 09:00
PROVIDERS: ATTEND Obstetrics & Gynecology
DX: Z11.3 Encounter for screening for infections with a predominantly sexual mode of transmission (principal)
CPT/HCPCS: 87491; 87591; 87661

== ENCOUNTER 2022-08-15 08:00 | Outpatient (CLI) | payer OTHER ==
[2022-08-16 00:07] LABS: BACTERIAL VAGINOSIS DNA NEGATIVE (NEGATIVE); CANDIDA GLABRATA DNA NEGATIVE (NEGATIVE); CANDIDA GROUP DNA POSITIVE (NEGATIVE); CANDIDA KRUSEI DNA NEGATIVE (NEGATIVE); TRICHOMONAS VAGINALIS DNA NEGATIVE (NEGATIVE)
== END 2022-08-15 23:59 | disposition home or self-care (01) ==
LOC: LAB 08:00
PROVIDERS: ATTEND Nurse Practitioner
DX: L29.8 Other pruritus (principal)
CPT/HCPCS: 81514

== ENCOUNTER 2022-08-15 09:58 | Outpatient (CLI) | payer OTHER | END 2022-08-15 09:59 | disposition home or self-care (01) | LOC: LAB 09:58 | PROVIDERS: ATTEND Obstetrics & Gynecology | DX: O09.91 Supervision of high risk pregnancy, unspecified, first trimester (principal) ==

== ENCOUNTER 2022-10-08 16:07 | Outpatient (CLI) | payer OTHER ==
[2022-10-11 20:07] LABS: AFP MOM 1.36 (.); AFP VALUE 69.5 ng/mL (.); GEST. AGE ON COLLECTION DATE 18.9 weeks (.); GESTAT. AGE METHOD As provided (.); INSULIN DEP DIABETES No (.); MATERNAL AGE AT EDD 36.3 yr (.); OPEN SPINA BIFIDA RISK 1 IN 4034 (.); RACE Caucasian (.); RESULTS Report (.); TEST RESULTS *Screen Negative* (.); WEIGHT 147 lbs (.)
== END 2022-10-08 16:08 | disposition home or self-care (01) ==
LOC: LAB.N 16:07
PROVIDERS: ATTEND Obstetrics & Gynecology
DX: O09.91 Supervision of high risk pregnancy, unspecified, first trimester (principal)
CPT/HCPCS: 82105

== ENCOUNTER 2022-10-20 13:38 | Outpatient (CLI) | payer OTHER ==
--- NOTE | 2022-10-21 10:38 | Ultrasound Report ---
PROCEDURE: OB Detailed Eval INDICATIONS: SUPERVISION OF OUTSIDE/PRIOR DATING DATA: Last menstrual period (LMP): 05/22/2022. LMP-based estimated date of delivery (MANINDER): 02/26/2010 23. First dating scan (date and location): 07/16/2022 at [facility]. Estimated date of delivery (MANINDER) from first dating scan: 02/25/2023. The below data below was generated using the ultrasound MANINDER of 02/25/2023 TECHNIQUE: Real-time scanning was performed of the fetus, with image documentation and biometric measurements. COMPARISON: OB ultrasound, 07/16/2020. FINDINGS: General: A single living intrauterine gestation is present. Presentation: Cephalic Placenta: Placental position is posterior, without previa. Amniotic fluid index: 13.2 cm; largest pocket 4.1 cm. heart rate: 140 beats per minute. Maternal cervical canal: 3.8 cm long; normal length is 2.5 cm or more. biometrics: Biparietal diameter: 22 weeks 3 days Head circumference: 22 weeks 2 days Abdominal circumference: 21 weeks 5 days Femur length: 21 weeks 6 days Estimated gestational age from initial scan: 21 weeks 5 days Composite gestational age from present scan: 22 weeks 1 day Estimated weight and percentile: 158 g; 53% for gestational age. Measurement variability in biometric dating: +/- 10 days from 12-20 weeks gestation, +/- 2 weeks from 20-30 weeks gestation, +/- 3 weeks at 30 weeks gestation or later. Anatomic survey: Neuro: Ventricles are normal at less than 10 mm. Cisterna magna is normal at 3-11 mm. Cerebellum i s normal in size and morphology. Nuchal skin fold: Normal at less than 6 mm between 14 and 20 weeks gestational age. Face: Nose and lips, facial profile are normal. Spine: No evidence for spina bifida. Heart: 4-chambered heart is present, with normal ventricular outflow tracts. Diaphragm: Diaphragm is intact. Stomach: Left-sided stomach is present. Kidneys: No hydronephrosis. Normal is less than 5 mm in 2nd trimester, less than 7 mm in 3rd trimester. Cord: 3 vessel cord has orthotopic insertion. Bladder: Normal in size. Extremities: All 4 extremities are visualized. IMPRESSION: 1. A single living IUP with with appropriate interval growth. 2. Normal anatomic survey. 3.The estimated weight is 53% for gestational age. 4. Normal KODY. Reviewed by: Tabitha Horton MD on 10/21/2022 10:37 AM PDT Approved by: Tabitha Horton MD on 10/21/2022 10:37 AM PDT Station ID: [id number]
== END 2022-10-20 13:39 | disposition home or self-care (01) ==
LOC: DI 13:38
PROVIDERS: ATTEND Obstetrics & Gynecology
DX: O09.92 Supervision of high risk pregnancy, unspecified, second trimester (principal); Z3A.22 22 weeks gestation of pregnancy

== ENCOUNTER 2022-12-05 11:21 | Outpatient (CLI) | payer OTHER ==
[2022-12-05 17:31] LABS: HCT - HEMATOCRIT 35.5 % (37.0-47.0); HGB - HEMOGLOBIN 11.6 g/dL (12.0-16.0); MEAN CORPUSCULAR HEMOGLOBIN 30.9 pg (27.0-31.0); MEAN CORPUSCULAR HGB CONC 32.7 g/dL (32.0-36.0); MEAN CORPUSCULAR VOLUME 94.4 fL (81.0-99.0); MEAN PLATELET VOLUME 9.9 fL (7.9-10.8); RED BLOOD COUNT 3.76 10^6/uL (4.20-5.40); RED CELL DISTRIBUTION WIDTH 13.4 % (12.0-15.0); WHITE BLOOD COUNT 13.5 x10^3/uL (4.8-10.8)
== END 2022-12-05 11:22 | disposition home or self-care (01) ==
LOC: LAB.N 11:21
PROVIDERS: ATTEND Obstetrics & Gynecology
DX: O09.522 Supervision of elderly multigravida, second trimester (principal)
CPT/HCPCS: 36415; 82950; 85027

== ENCOUNTER 2023-01-20 19:13 | Outpatient (CLI) | payer OTHER ==
--- NOTE | 2023-01-20 19:53 | Ultrasound Report ---
PROCEDURE: Duplex Ext Veins Left INDICATIONS: LEFT CALF PAIN TECHNIQUE: Real-time imaging, as well as color and pulse Doppler interrogation, were performed of the lower extr emity deep veins from the inguinal ligament to the popliteal fossa. Attempted visualization of the ca lf veins was performed. COMPARISON: None. FINDINGS: The deep veins are normally compressible, and free of intraluminal thrombus. Color and pu lse Doppler demonstrate normal phasic intraluminal flow. There is normal augmentation response to di stal compression maneuver. IMPRESSION: No deep venous thrombosis of the visualized lower extremity. Reviewed by: Anand Eubanks on 01/20/2023 7:52 PM PDT Approved by: Anand Eubanks on 01/20/2023 7:52 PM PDT Station ID: [id number]
== END 2023-01-20 19:14 | disposition home or self-care (01) ==
LOC: DI 19:13
PROVIDERS: ATTEND Nurse Practitioner
DX: M79.662 Pain in left lower leg (principal)

== ENCOUNTER 2023-02-04 08:00 | Outpatient (CLI) | payer OTHER | END 2023-02-04 23:59 | disposition home or self-care (01) | LOC: LAB.WC 08:00 | PROVIDERS: ATTEND Obstetrics & Gynecology | DX: Z36.85 Encounter for antenatal screening for Streptococcus B (principal) | CPT/HCPCS: 87797 ==

== ENCOUNTER 2023-02-09 18:31 | Outpatient (CLI) | payer OTHER ==
--- NOTE | 2023-02-10 13:55 | Ultrasound Report ---
PROCEDURE: OB F/U or Repeat INDICATIONS: UTERINE SIZE - DATE DISCREPANCY OUTSIDE/PRIOR DATING DATA: Last menstrual period (LMP): 05/22/2022. LMP-based estimated date of delivery (MANINDER): 02/26/2023. First dating scan (date and location): 07/16/2022. Estimated date of delivery (MANINDER) from first dating scan: 02/25/2023. TECHNIQUE: Real-time scanning was performed of the fetus, with image documentation and biometric measurements. Endovaginal scanning: Not performed. COMPARISON: Ultrasound 10/20/2022 FINDINGS: General: A single living intrauterine gestation is present. Presentation: Vertex Placenta: Placental position is posterior, without previa. Amniotic fluid index: 17.1 cm, within normal limits for gestational age. heart rate: 133 beats per minute. Maternal cervical canal: Not well visualized. biometrics: Biparietal diameter: 9.1 cm 36 weeks 5 days Head circumference: 34.3 cm 39 weeks 4 days Abdominal circumference: 33.0 cm 37 weeks 0 days Femur length: 7.1 cm 36 weeks 4 days Estimated gestational age from initial scan: 37 weeks 5 days Composite gestational age from present scan: 35 weeks 3 days Estimated weight and percentile: 3116 g, 47th percentile Measurement variability in biometric dating: +/- 10 days from 12-20 weeks gestation, +/- 2 weeks from 20-30 weeks gestation, +/- 3 weeks at 30 weeks gestation or more. Other: Not applicable. IMPRESSION: 1. Single living intrauterine in vertex presentation. 2. Estimated weight at the 47th percentile. Reviewed by: Barney Alejandre MD on 02/10/2023 1:53 PM PDT Approved by: Barney Alejandre MD on 02/10/2023 1:53 PM PDT Station ID: [id number]
== END 2023-02-09 18:32 | disposition home or self-care (01) ==
LOC: DI 18:31
PROVIDERS: ATTEND Obstetrics & Gynecology
DX: O09.523 Supervision of elderly multigravida, third trimester (principal); O26.843 Uterine size-date discrepancy, third trimester; Z3A.35 35 weeks gestation of pregnancy

== ENCOUNTER 2023-02-16 20:07 | Inpatient (IN) | payer OTHER ==
[2023-02-16] MEDS ORDERED: hydrALAZINE INJ 20 MG/ML VIAL IVP PRN ×2 (20:41)
[2023-02-16] MEDS ORDERED: OXYTOCIN 10 UNIT/ML VIAL IM PRN (20:41)
[2023-02-16] MEDS ORDERED: lidocaine 1% 20 ML MDV ID PRN (20:41)
[2023-02-16] MEDS ORDERED: fentaNYL 100 MCG/2 ML VIAL IVP PRN (20:41)
[2023-02-16] MEDS ORDERED: TERBUTALINE 1 MG/ML VIAL SUBQ PRN (20:41)
[2023-02-16] MEDS ORDERED: CARBOPROST TROMETHAMINE 250 MCG/ML AMP IM PRN (20:41)
[2023-02-16] MEDS ORDERED: miSOPROStoL 200 MCG TABLET PR PRN (20:41)
[2023-02-16] MEDS ORDERED: LABETALOL 20 MG/4 ML SYRINGE IVP PRN (20:41)
[2023-02-16] MEDS ORDERED: METHYLERGONOVINE 0.2 MG/ML VIAL IM PRN (20:41)
[2023-02-16] MEDS ORDERED: TRANEXAMIC ACID IN NACL 1,000 MG/100 ML BAG IV PRN (20:41)
[2023-02-16] MEDS ORDERED: NIFEdipine 10 MG CAPSULE PO PRN (20:41)
[2023-02-16] MEDS ORDERED: miSOPROStoL 200 MCG TABLET BC PRN (20:41)
[2023-02-16] MEDS ORDERED: OXYTOCIN/SODIUM CHLORIDE 500 ML IV PRN (20:41)
[2023-02-16] MEDS ORDERED: LACTATED RINGERS 1,000 ML IV PRN (20:41)
[2023-02-16] MEDS ORDERED: SODIUM CHLORIDE FLUSH 0.9% 10 ML SYRINGE IVP PRN (20:41)
[2023-02-16 20:42] LABS: BASOPHILS # (AUTO) 0.1 10^3/uL (0.0-0.1); BASOPHILS % (AUTO) 0.7 %; EOSINOPHILS # (AUTO) 0.1 10^3/uL (0.0-0.7); EOSINOPHILS % (AUTO) 0.5 %; HCT - HEMATOCRIT 38.7 % (37.0-47.0); HGB - HEMOGLOBIN 13.3 g/dL (12.0-16.0); LYMPHOCYTES % (AUTO) 17.7 %; MEAN CORPUSCULAR HEMOGLOBIN 30.2 pg (27.0-31.0); MEAN CORPUSCULAR HGB CONC 34.4 g/dL (32.0-36.0); MEAN PLATELET VOLUME 9.8 fL (7.9-10.8); MONOCYTES # (AUTO) 0.9 10^3/uL (0.0-1.0); MONOCYTES % (AUTO) 5.1 %; NEUTROPHILS # (AUTO) 12.4 10^3/uL (1.5-6.6); NEUTROPHILS % (AUTO) 73.9 %; PLT - PLATELET COUNT 364 10^3/uL (130-450); RED CELL DISTRIBUTION WIDTH 13.2 % (12.0-15.0); WHITE BLOOD COUNT 16.8 x10^3/uL (4.8-10.8)
[2023-02-16] MEDS ORDERED: LACTATED RINGERS 1,000 ML ONE (20:50)
--- NOTE | 2023-02-16 20:50 | HISTORY & PHYSICAL EXAMINATION ---
Admit History - Visit Reason Visit Reason: Contractions, Membranes rupture - : 3 Parity: 1 : 1 Risk/History: positive: None Smoking Status: Former smoker - Mother's Labs Mother's Blood Type: positive: O Mother's RH: positive: Positive GBS: positive: Group B Step Negative Rubella Status: positive: Immune - Other Maternal History Other Maternal History: HPI: Patient is a 37-year-old at 38 weeks 4 days gestation here for term labor/SROM. Contractions started around 1830 and have been increasing in frequency and intensity. Now occurring every 2 minutes. While being assessed, she had spontaneous rupture of membranes.. She has good movement. No KOHLI/BV or RUQP. No vaginal bleeding. Denies nausea and vomiting. Denies urinary urgency or dysuria. All other symptoms reviewed and were negative except per HPI. Course PMH LMP: 05/22/2022 MANINDER by LMP: 02/26/2023 US Date 07/16/2022, US Age 8 weeks 0 days, MANINDER by ultrasound: 02/26/2023 Final MANINDER: 02/26/2023. By LMP consistent with 8-week ultrasound Problems: AMA Genital HSV: Taking acyclovir. No outbreaks since age 20. HIstory of anxiety Pubic symphysis pain: Seeing Pelvic PT. discussed loratadine and , experienced breastfeeder. will take PRN instead of preventatively until milk well established. Pre- Weight:135.4 BMI: 21.28 Blood type: O Rh: positive Antibody:Negative CBC: PLT 398 HCT 35.4 HGB 11.9 RUB:immune VZV:immune HBsAg: Negative HepC: Non reactive RPR/AB-EIA:Non reactive HIV:Non reactive PAP:Due 09/04/2022 GC/CT:collected 08/07 negative HSV: History of herpes. Plan for acyclovir at 36 weeks Genetic testing: NIPT- Negative AFP-Negative Covid: Vaccinated and boosted x2 Flu: Given 01/08/23 FAS: Ordered 09/03/22 Scheduled a little late, when home-10/20 Placenta:posterior w/o previa Cord:3VC KODY:Normal EFW:53rd %ile 02/09- Normal growth us 3116g 47th%ile 50gm OGCT: 92 3HR GTT: TDAP: Given 12/10/22 Breast Pump: Given 3rd trimester H/H: 35.5/11.6 PLT: 365 GBS:Collected negative Delivery plan: Contraception: Condoms vs partner vasectomy PSH No previous surgeries OB History -0-1-1 1. 04/25/2020, 40 weeks 1 day, , male 2. 04/22/2022, early SAB 3. Current gestation SH Denies tobacco, alcohol, drugs. Former smoker. Family History Mother: Anxiety, depression, psychiatric care, heart disease, hypertension Father: Alcoholism, heart disease Paternal grandfather: Alcoholism Maternal grandmother: Stroke Maternal grandfather: Stroke Allergies Lactose Penicillin Medications Tums Acyclovir vitamins Physical exam: General: Alert, oriented, no acute distress Head: Normal cephalic atraumatic Eyes: PERRLA, extraocular motions intact. Respiratory: Normal rate of respiration. No accessory muscle use, normal respiratory effort. Cardiovascular: Regular rate and rhythm Abdomen: Gravid, nontender, nondistended Extremities: Normal range of motion Neuro: Oriented x3. Normal movements Psych: Appropriate mood and affect. Normal judgment and insight : No lesions present. SVE: FHT: 135 beats per baseline, moderate variability, accelerations present, no decelerations. [place]: Every 2 minutes Meds/Allgy - Allergies Allergies/Adverse Reactions: Allergies Allergy/AdvReac Type Severity Reaction Status Date / Time Penicillins Allergy Unknown Verified 04/22/22 18:17 Plan for Labor - Plan For Labor I expect patient to be DC'd or transferred within 96 hours.: Yes Plan for Labor: 37-year-old -0-1-1 at 38 weeks 4 days gestation by LMP consistent with 8- week ultrasound admitted for term labor/SROM 1. Term labor -Admit to L&D, admit labs, epidural at patient's request. Anticipate 2. 38 weeks gestation 3. Spontaneous rupture of membranes -Grossly ruptured 4. Vulvovaginal HSV -No lesions seen. On appropriate prophylaxis
[2023-02-16] MEDS ORDERED: SODIUM CHLORIDE FLUSH 0.9% 10 ML SYRINGE IVP SCH (21:00)
[2023-02-16] MEDS ORDERED: LACTATED RINGERS 1,000 ML IV SCH ×2 (21:00→22:00)
[2023-02-16] MEDS ORDERED: ROPIVACAINE 0.2% 0 MG/0 ML BAG EP ONE (21:04)
[2023-02-16] MEDS ORDERED: LIDOCAINE 2%-EPI 1:100000 20 ML MDV ONE (21:06)
[2023-02-16] MEDS ORDERED: SIMETHICONE CHEW 80 MG TABLET PO PRN (21:54)
--- NOTE | 2023-02-16 22:00 | DELIVERY NOTE ---
Delivery Note - Labor Labor: positive: Spontaneous - Delivery Method Delivery Method: positive: Spontaneous vaginal delivery - Presentation Presentation: positive: Vertex, Compound (Left) - Nuchal Cord Nuchal Cord: positive: None - Anesthetic Anesthetic: positive: Lidocaine - 1% plain Volume: positive: 3cc - Amniotic Fluid Description Amniotic Fluid Description: positive: Clear - Laceration Laceration: positive: 2nd degree - Suture Suture Type: positive: Vicryl Suture Size: positive: 3-0 - Delivery Outcome Delivery Outcome: positive: Livebirth - [place] : positive: Placed in direct skin contact with mother, [place] used [place] sex: positive: Male - Cord Cord: positive: 3 vessels - Placenta Placenta: positive: Intact - Estimated Blood Loss Estimated Blood Loss (in cc): 200 - Post Delivery Events Post Delivery Events: positive: No post delivery events - Delivery Comments (Free Text/Narrative) Delivery Comments (Free Text/Narrative): Preoperative Diagnoses 38 weeks gestation Term labor/SROM Vulvovaginal HSV Postoperative Diagnoses Same Status post continuous vaginal delivery Delivery of live artis Labor summary: Patient presented to labor and delivery trinh every 2 minutes and is 5 cm dilated. While being assessed, she had spontaneous rupture of membranes. She asked for an epidural, but as anesthesia arrived, she was checked and found to be complete and 0 station and actively pushing. Patient continued to push with the delivery team present. Delivery Summary: Patient elected for hands and knees position. Upon maternal pushing the head was delivered atraumatically with a compound left hand. followed by the anterior s houlder, posterior shoulder, then the remainder of the 's body. A male infant was delivered with APGARS of 9 at 1 minute and 9 at 5 minutes. The infant was placed on its mother's chest . After the cord finished pulsating, the umbilical cord was clamped times two and cut. The placenta delivered intact with three vessel cord. Placenta was not sent to pathology. Thirty units of Pitocin were added to the IV fluid and allowed to run freely. Uterine massage was performed until uterus was deemed firm. Upon section the perineum, second-degree midline laceration was noted and was repaired with a 3-0 Vicryl in a running fashion. Upon re-inspection the patient was hemostatic. Uterus again massaged and found to be firm. Needle and sponge counts were correct. Patient was stable and allowed to recover in L&D room. Infant was stable and remained in room with mother. weight is pending at this time.
[2023-02-16] MEDS: ACETAMINOPHEN 500 MG TABLET PO SCH (23:14)
[2023-02-16] MEDS: DOCUSATE SODIUM 100 MG CAPSULE PO PRN (23:15)
[2023-02-17] MEDS: IBUPROFEN 600 MG TABLET PO SCH ×4 (01:23→17:02)
[2023-02-17] MEDS: ACETAMINOPHEN 500 MG TABLET PO SCH ×3 (06:58→23:08)
--- NOTE | 2023-02-17 08:51 | PROVIDER PROGRESS NOTE ---
Subjective - Prog Note Date Prog Note Date: 02/17/23 Prog Note Time: 08:51 - Subjective Subjective: Subjective Patient reports she is doing well. Lochia appropriate. Denies heavy bleeding. Ambulating. Pelvic and abdominal pain well-controlled. Tolerating oral intake. Diet: Regular. Voiding without difficulty. Passing flatus. Denies BM. Patient is bonding with baby in room Breast feeding going well. Denies feeling lightheaded, dizzy or excessively fatigued. Control: Undecided Objective General: Alert, oriented, no apparent distress. Cardiovascular: Regular rate. Regular rhythm. Lungs: No increased work of breathing. Abdomen: Uterus firm. Below umbilicus. No guarding or rebound. Extremities: No pain on palpation. No cords palpated. Distal pulses intact. Assessment and Plan day 1. -Routine care -Anticipate discharge tomorrow Objective - Vital Signs/Intake & Output Vital Signs: Vital Signs x48h Temp Pulse Resp BP Pulse Ox 02/17/23 06:57 98.5 F 66 14 114/55 L 99 02/17/23 01:56 98.6 F 70 16 123/56 L 99 Intake & Output: Intake & Output 02/14/23 02/15/23 02/16/23 02/17/23 23:59 23:59 23:59 23:59 Intake Total 1331.000 Output Total 250 750 Balance 1081.000 -750 - Lab Results Fish Bones: 02/16/23 20:30 Other Labs: Lab Results x24hrs 02/16/23 02/16/23 Range/Units 20:30 20:30 WBC 16.8 H (4.8-10.8) x10^3/uL RBC 4.40 (4.20-5.40) 10^6/uL Hgb 13.3 (12.0-16.0) g/dL Hct 38.7 (37.0-47.0) % MCV 88.0 (81.0-99.0) fL MCH 30.2 (27.0-31.0) pg MCHC 34.4 (32.0-36.0) g/dL RDW 13.2 (12.0-15.0) % Plt Count 364 (130-450) 10^3/uL MPV 9.8 (7.9-10.8) fL Neut # (Auto) 12.4 H (1.5-6.6) 10^3/uL Lymph # (Auto) 3.0 (1.5-3.5) 10^3/uL [place] # (Auto) 0.9 (0.0-1.0) 10^3/uL Eos # (Auto) 0.1 (0.0-0.7) 10^3/uL Baso # (Auto) 0.1 (0.0-0.1) 10^3/uL Absolute Nucleated RBC 0.00 x10^3/uL Nucleated RBC % 0.0 /100WBC Blood Type O POSITIVE Antibody Screen NEGATIVE
[2023-02-17] MEDS: DOCUSATE SODIUM 100 MG CAPSULE PO PRN ×2 (12:34→22:13)
[2023-02-18] MEDS: ACETAMINOPHEN 500 MG TABLET PO SCH (08:05)
[2023-02-18] MEDS: DOCUSATE SODIUM 100 MG CAPSULE PO PRN (08:05)
--- NOTE | 2023-02-18 08:52 | DISCHARGE SUMMARY ---
Discharge Summary Admit Date: 02/16/23 Discharge Date: 02/18/23 Discharging Provider: Guicho Higuera MD Code Status: Attempt Resuscitation Condition at Discharge: Good Discharge Disposition: 01 Home, Self Care - DIAGNOSES Admission Diagnoses: Term Labor Spontaneous rupture of membranes Vulvovaginal HSV 38 weeks gestation Discharge Diagnoses with Status of Each Condition: Term Labor Spontaneous rupture of membranes Vulvovaginal HSV 38 weeks gestation Status post Delivery of life artis - HPI History of Present Illness: Subjective Patient reports she is doing well. Lochia appropriate. Denies heavy bleeding. Ambulating. Pelvic and abdominal pain well-controlled. Tolerating oral intake. Diet: Regular. Voiding without difficulty. Passing flatus. Denies BM. Patient is bonding with baby in room Breast feeding going well. Denies feeling lightheaded, dizzy or excessively fatigued. Control: Considering partner vasectomy Objective General: Alert, oriented, no apparent distress. Cardiovascular: Regular rate. Regular rhythm. Lungs: No increased work of breathing. Abdomen: Uterus firm. Below umbilicus. No guarding or rebound. Extremities: No pain on palpation. No cords palpated. Distal pulses intact. Psych: Mood is normal. Smiling conversing naturally. - HOSPITAL COURSE Hospital Course: Patient is admitted at 38 weeks gestation for spontaneous rupture membranes/term labor. She arrived at 5 cm that had spontaneous rupture of membranes. She then progressed quickly to complete and started pushing. Second stage was only compl icated by a small second-degree laceration, but the remainder of her hospitalization and course were unremarkable. She was discharged on day 2 with her . weight: 3825 g - ALLERGIES Allergies/Adverse Reactions: Allergies Allergy/AdvReac Type Severity Reaction Status Date / Time Penicillins Allergy Unknown Verified 04/22/22 18:17 - MEDICATIONS Home Medications: Ambulatory Orders Medication Instructions Recorded Confirmed Acetaminophen [Acetaminophen Extra 1,000 mg PO TID 02/18/23 02/18/23 Strength] Ibuprofen 600 mg PO TID 02/18/23 02/18/23 - LABS Result Diagrams: 02/16/23 20:30 - QUALITY (Female Hip Fx Only) Was patient sent home on osteoporosis medication?: No - FOLLOW UP Follow Up: With Guicho Higuera MD at [facility] in 1 week - TIME SPENT Time Spent in Discharge (Minutes): 20
--- NOTE | 2023-02-18 08:57 | Discharge Plan ---
Discharge Plan Problem Reviewed?: Yes Disposition: Home, Self Care Condition: Good Diet: Regular Instruction Topics: Vaginal After, Depression No Smoking: If you smoke, Please STOP! Call for help. Follow-up with: Guicho Higuera MD [Provider Admit Priv/Credential] -
[2023-02-18 13:02] VITALS: BP 122/60; O2SAT 99
[2023-02-18] MEDS: IBUPROFEN 600 MG TABLET PO SCH ×2 (13:02→13:03)
--- NOTE | 2023-02-18 13:08 | Labor Flowsheet ---
Labor Flowsheet Datetime Report Generated by CPN: 02/18/2023 13:08 Datetime: 02/18/2023 11:51 VITAL SIGNS NBP Sys/Chloe/Mean (mmHg): 122 : 60 : 73 Pulse: 81 Datetime: 02/16/2023 23:34 Stage of : Respirations: 16 Datetime: 02/16/2023 23:16 Pain Relief Measures: Pain Medication Given Datetime: 02/16/2023 23:01 PAIN Pain Scale: 2 Pain Presence: Constant Pain Type: Sore Pain Location: Perineum Datetime: 02/16/2023 21:46 Temperature (C): 37.0 Datetime: 02/16/2023 21:37 Membranes Ruptured Date/Time: 02/16/2023 20:38 Amniotic Fluid Odor: Normal Datetime: 02/16/2023 21:23 Decelerations: Late Category: Category II Comments: FHR 140 x 4 min, 130 x 2.5 min and 125 x 2 min. Persistent periodic cisco decels noted, delivery imminent. Datetime: 02/16/2023 21:20 SpO2 (%): 100 Contraction Comments: UC per pt LaborFlag: Labor Datetime: 02/16/2023 21:15 UTERINE ACTIVITY Monitor Mode: External Monitor Interventions for UA: [place] Adjusted Frequency (min): 1.5-3 Quality: Strong Duration (sec): 60-120 Pattern: Normal: <= 5 Contractions in 10 Minutes Resting Tone (Palpate): Relaxed ASSESSMENT A Monitor Mode: External US FHR Baseline Rate : 135 Variability: Moderate 6-25 bpm Accelerations: 15X15 Datetime: 02/16/2023 21:01 VAGINAL EXAM Dilatation (cm): 10.0 Exam by: Dr Knox Patient Care Comments: Dr Higuera explained to pt may have baby in middle of epidural placement an d recommended to go without. Pt agreed Labor/Induction: Pushing Methods Teaching Comments: including to only push during UCs and relax DB in between UCs Datetime: 02/16/2023 21:00 PATIENT CARE Patient Position/Activity: Low Fowlers Datetime: 02/16/2023 20:56 Station: 0 Datetime: 02/16/2023 20:54 ANESTHESIA Anesthesia Comments: Mayarajesh Noriega, SPARK TESTER on unit. Updated per OBGYN Pt may have gone too fast for epidural. Datetime: 02/16/2023 20:53 Vaginal Exam Comments: Offered to do SVE in case time to push, pt declied for me to do SVE at this time Provider Notified (Name): Dr Higuera Communication Comments: Notified Dr Higuera on unit of pt's urge to push with UCs. He came to bed side Datetime: 02/16/2023 20:43 I/O Interventions: Up to BR Datetime: 02/16/2023 20:40 Pain Coping: Requesting Pain Medication or Epidural Pain Assessment Comments: Call to Maya Noriega CRNA to notify of patient request for epidural. Provider in route. Provider requests this RN initiate LR bolos (500mL) Datetime: 02/16/2023 20:38 Membrane Status: Ruptured Membranes Rupture Method: Spontaneous Amniotic Fluid Color: Clear Amniotic Fluid Amount: Large Datetime: 02/16/2023 20:31 Monitor Interventions for FHR: Ultrasound Adjusted Datetime: 02/16/2023 20:24 COMMUNICATION Communication: Call/Page Placed to Provider Notification Reason: Labor Status Nurse Giving Report: VISHNU Agustin SBAR Notable Communications: Provider notified of primary RN CELESTE, contraction pattern. Provider in route to hospital to evaluate patient Datetime: 02/16/2023 20:18 Effacement (%): 90 Datetime: 02/16/2023 20:15 TEACHING Instructional Method: Verbal; Patient Instructed; Family/Support Person Instructed; Verbalized Unde rstanding Plan of Care: Plan of Care Discussed; Vaginal Delivery; Labor Unit Routine: [place] to Room; Call Irene; Bed; Unit Personnel; Handwashing; Monitoring; Safety /Fall Risk Prevention Pain Management: Epidural; Pain Scale/Goals
== END 2023-02-18 12:45 | disposition home or self-care (01) | DRG 807 ==
LOC: WFO 20:07 → FBP 20:08 → WFO 20:40 → FBP 20:41
PROVIDERS: ADMIT Obstetrics & Gynecology; ATTEND Obstetrics & Gynecology
PROC: 10E0XZZ Delivery of Products of Conception, External Approach (ICD-10-PCS; principal; 2023-02-16)
PROC: 0KQM0ZZ Repair Perineum Muscle, Open Approach (ICD-10-PCS; 2023-02-16)
DX: O98.32 Other infections with a predominantly sexual mode of transmission complicating childbirth (principal); Z37.0 Single live birth; A60.04 Herpesviral vulvovaginitis; O70.1 Second degree perineal laceration during delivery; O32.6XX0 Maternal care for compound presentation, not applicable or unspecified; Z3A.38 38 weeks gestation of pregnancy; Z87.891 Personal history of nicotine dependence
CPT/HCPCS: 59409; 85025; 86850; 86900; 86901; A9270; J7120; 99215